=== PATIENT | male | born 1955 | race Caucasian/White ===

== ENCOUNTER 2023-12-14 09:15 | Outpatient (CLI) | payer MEDICARE, OTHER, SELFPAY ==
[2024-01-04 18:56] VITALS: BMI 26.5
--- NOTE | 2024-01-04 18:56 | WPDSLEEPSTUD ---
Sleep Study Date of Study: 12/14/23 Ordering Provider: Mike Wilcox, WELDING INSTRUCTOR Interpreting Physician: Annemarie Wolf, Sleep Study Type: CPAP Titration Height: 1.78 m Weight: 83.915 kg Body Mass Index: 26.5 [place]: 6 Reason for Sleep Study Elevated AHI on compliance data. Patient is currently on AutoPAP 8-11 cm H2O with EPR of 3. Sleep History The patient is a 68-year-old male with severe sleep apnea that had a sleep study ordered by his ENT due to an elevated AHI on his compliance data. The patient denies awakening from sleep short of breath. He occasionally awakens at night with heartburn, belching or cough. He occasionally snores but is rarely loud enough that others complain. He occasionally has trouble sleeping when he has a cold. He denies waking up gasping for air throughout the night. He rarely has breathing problems at night observed by himself or others. He occasionally sweats excessively at night. He denies having heart palpitations or irregular heartbeats during the night. He rarely falls asleep during the day and never while driving. He denies sleep paralysis and cataplexy. He denies having trouble at school or work due to sleepiness. He occasionally experiences vivid dreamlike scenes upon awakening or falling asleep. He denies feeling afraid of going to sleep. He rarely has nightmares. He occasionally remembers his dreams. He rarely has thoughts racing through his mind. He denies feeling sad or depressed. He denies having anxiety. He denies having muscular tension. He denies noticing parts of his body jerk. He denies kicking during the night. He denies having crawling and aching feelings in his legs and rarely has leg pain during the night. He denies grinding his teeth during sleep and denies awakening with morning jaw pain. He denies being bothered by pain during the day and denies being awakened by pain during the night. He rarely wakes up feeling stiff in the morning. He rarely wakes up with sore or achy muscles. He denies waking up with pain in the neck, spine and other joints. He goes to bed at 11:00 p.m. on both weekdays and weekends. It takes him 15 minutes to fall asleep. He wakes up once throughout the night for unknown reasons but is able to fall back asleep relatively quickly. He wakes up at 6:30 a.m. on weekdays and at 7:00 a.m. on the weekends. He typically gets 6-7 hours of sleep per night. He stays in bed for 20 minutes after waking up in the morning. He currently lives with his . He denies consuming any caffeinated beverages within 2 hours of bedtime. He denies engaging in physical exercise before bedtime. He will read and watch television before falling asleep. He denies taking naps in the afternoon or the evening. He consumes 2 caffeinated beverages per day. He consumes 1-2 alcoholic beverages per day. He denies tobacco and recreational drug use. PMFSH Past Medical History Medical History NORI (obstructive sleep apnea) Sleep Procedure A full night polysomnogram using the [employer] multi-channel system recorded the standard physiologic parameters including EEG, EOG, submentalis EMG, anterior tibialis EMG, EKG, body position, nasal and oral airflow using PAP device flow signal.? Respiratory parameters of chest and abdominal movements were recorded with Respiratory Inductance Plethysmography belts. Oxygen saturation was recorded by pulse oximetry. Video monitoring was also performed. Sleep stages, periodic limb movements, and EEG arousals were scored in 30 second epochs according to the criteria of the AASM Scoring Manual. The Apnea-Hypopnea Index was calculated using [facility] guidelines for definition of hypopnea with 4% O2 desaturations while scoring respiratory events. Sleep Architecture The total recording time was 504.7 minutes.? The total sleep time was 403.5 minutes. Sleep latency was 10.9 minutes. REM latency was
== END 2023-12-15 07:22 | disposition home or self-care (01) ==
LOC: ANHCSM 09:16
PROVIDERS: PCP Family Medicine; Visit Provider Nurse Practitioner Family
DX: G47.33 Obstructive sleep apnea (adult) (pediatric) (principal)
CPT/HCPCS: 95811